=== PATIENT | male | born 1990 | race Caucasian/White ===

== ENCOUNTER → 2021-03-19 10:14 | Outpatient (BNVA) | payer OTHER, SELFPAY | PROVIDERS: Visit Provider Nurse Practitioner Family | DX: Z20.822 Contact with and (suspected) exposure to COVID-19 (principal) | CPT/HCPCS: 87635 ==

== ENCOUNTER 2025-01-24 07:20 | Emergency (ER) | payer BC, MEDICAID, SELFPAY ==
[2025-01-24 07:22] VITALS: BP 150/90; PULSE 100; RESP 18; TEMP 37.2; O2SAT 94
--- OUTSIDE RECORDS SUMMARY | 2025-01-24 07:26 | XMS_ITS | Clinical Summary ---
Author Organization [facility] Address [address] [facility] [address] [place] [address] Phone Care Team Providers Care Hand Trucker Name Role Phone Unavailable Primary Care Provider Unavailabl e Allergies Active Allergy Reactions Criticality Noted Date Comments Amoxicillin Hives High 01/24/2019 Medications clindamycin HCl (CLEOCIN) 300 mg Capsule Take 300 mg by mouth 4 times daily. Active pseudoephedrine (SUDAFED 12 HOUR) 120 mg Extended Release 12 hour tablet Take 120 mg by mouth 2 times daily as needed for Congestion. Active predniSONE (DELTASONE) 20 mg tablet 1 po tid x 5 days then 1 po bid x 3 days the 1 po daily x 2 days. Take with food.. 23 Tablet None 01/24/2019 Active Social History Tobacco Use Types Packs/Day Years Used Date Smoking Tobacco: Never Smokeless Tobacco: Current Alcohol Use Standard Drinks/Week Comments Not Currently 0 (1 standard drink = 0.6 oz pur e alcohol) Sex and Gender Information Value Date Recorded Sex Assigned at Not on file Legal Sex Male 1:37 PM CDT Gender Identity Not on file Sexual Orientation Not on file Last Filed Vital Signs Vital Sign Reading Time Taken Comments Blood Pressure 147/81 01/24/2019 1:45 PM CDT Pulse - - Temperature 36.5 C (97.7 F) 01/24/2019 1:45 PM CDT Respiratory Rate 18 01/24/2019 1:45 PM CDT Oxygen Saturation 99% 01/24/2019 1:45 PM CDT Inhaled Oxygen Concentration - - Weight 54.4 kg (120 lb) 01/24/2019 1:45 PM CDT Height 172.7 cm (5' 8 ) 01/24/2019 1:45 PM CDT Body Mass Index 18.25 01/24/2019 1:45 PM CDT Plan of Treatment Health Maintenance Due Date Last Done Comments DTAP/TDAP/TD VACCINES (1 - Tdap) 2009 HEPATITIS B VACCINES (1 of 3 - 19+ 3-dose series) 2009 INFLUENZA VACCINE (#1) 2025 HPV VACCINES Aged Out No longer eligi ble based on patient's age to complete this topic
--- OUTSIDE RECORDS SUMMARY | 2025-01-24 07:26 | XMS_ITS | Clinical Summary ---
Author Organization [facility] Address [address] [facility] Attn: Epic Prelude [place]T [place] [address] Care Team Providers Care Coping Machine Assembler Name Role Phone Unavailable Primary Care Provider Unavailabl e Allergies Active Allergy Reactions Criticality Noted Date Comments Amoxicillin Hives High 01/24/2019 Medications predniSONE (DELTASONE) 20 mg tablet 1 po tid x 5 days then 1 po bid x 3 days the 1 po daily x 2 days.Take with food.. 23 Tablet None 01/24/2019 Active clindamycin HCL (CLEOCIN) 300 mg Capsule Take 300 mg by mouth 4 times daily. 01/24/2019 Active pseudoephedrine (SUDAFED 12 HOUR) 120 mg Extended Release 12 hour tablet Take 120 mg by mouth 2 times daily as needed for Congestion. 

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
[2025-01-24 07:43] LABS: Hematocrit 48.2 % (37-53); Hemoglobin 15.80 g/dL (11.27-16.99); Mean Corpuscular HGB Conc 32.8 g/dL (30-55); Mean Corpuscular Hemoglobin 30.1 pg (27-33); Mean Corpuscular Volume 91.8 fl (82-101); Nucleated Red Blood Cells % 0 %; Platelet Count 307 10^3/cmm (157-399); Red Blood Count 5.25 10^6/uL (3.85-5.65); White Blood Count 21.52 10^3/uL (3.29-11.43)
[2025-01-24 08:00] LABS: Alanine Aminotransferase 62 U/L (0-41); Albumin Level 4.6 g/dL (3.5-5.2); Alkaline Phosphatase 145 U/L (40-130); Anion Gap 18.1 (5-19); Aspartate Amino Transferase 74 U/L (0-40); Blood Urea Nitrogen 14 mg/dL (6-20); Calcium 9.4 mg/dL (8.5-10.5); Carbon Dioxide 23 mmol/L (22-29); Chloride 104 mmol/L (98-107); Creatinine Clr Calc Pharmacy 93.7806; Globulin 3.2 g/dL (1.3-4.6); Glucose 182 mg/dL (65-115); Osmolality Calculated 297 mOsm/kg (285-295); Potassium 4.1 mmol/L (3.5-5.1); Sodium 141 mmol/L (136-145); Total Protein 7.8 g/dL (6.6-8.7)
[2025-01-24] MEDS: iohexol 350 mg/mL 500 mL Btl (per mL) IV (08:09)
[2025-01-24 08:49] VITALS: RESP 22; O2SAT 95
[2025-01-24] MEDS: morphine 4 mg/mL SDV 1 mL 2 MG IVP (08:49)
[2025-01-24] MEDS: ondansetron 2 mg/ML SDV 2 mL 4 MG IVP (08:49)
[2025-01-24] MEDS: tetanus-dipt-pertussis 0.5 mL SDV IM (08:51)
[2025-01-24 08:57] VITALS: PULSE 109; RESP 18; O2SAT 98
[2025-01-24 09:05] VITALS: BP 109/74; PULSE 102; RESP 16; O2SAT 95
[2025-01-24 09:54] VITALS: BP 136/88; PULSE 99; RESP 16; O2SAT 96
[2025-01-24 10:14] VITALS: BP 138/89; PULSE 106; RESP 16; O2SAT 94
[2025-01-24] MEDS: HYDROcodone-acetaminophen 5-325 mg Tablet 2 TAB PO (10:19)
[2025-01-24] MEDS: mupirocin oint 22 gm 1 APPLIC TOPICAL (10:20)
--- NOTE | 2025-01-24 10:40 | PC.NURSE ---
cleansed abrasions to back, right arm, and right leg with normal saline, applied ointment to wounds, covered with nonstick guaze.
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
== END 2025-01-24 10:43 | disposition home or self-care (01) ==
PROVIDERS: Emergency Provider Family Medicine
DX: S42.021A Displaced fracture of shaft of right clavicle, initial encounter for closed fracture (principal); M25.561 Pain in right knee; R07.81 Pleurodynia; V20.49XA Other motorcycle driver injured in collision with pedestrian or animal in traffic accident, initial encounter; Y92.410 Unspecified street and highway as the place of occurrence of the external cause; V29.99XA Rider (driver) (passenger) of other motorcycle injured in unspecified traffic accident, initial encounter; Z23 Encounter for immunization
CPT/HCPCS: 36415; 71045; 71260; 72125; 73030; 73130; 73562; 74177; 80053; 85025; 90471; 90715; 96374; 96375; 99285; A4565; A6446; J2270; J2405; J9999

== ENCOUNTER → 2025-01-30 08:13 | Outpatient (BNVA) | payer BC, MEDICAID, SELFPAY | PROVIDERS: Visit Provider Orthopaedic Surgery | DX: S42.021A Displaced fracture of shaft of right clavicle, initial encounter for closed fracture (principal); X58.XXXA Exposure to other specified factors, initial encounter | CPT/HCPCS: 73000 ==

== ENCOUNTER → 2025-02-13 07:48 | Outpatient (BNVA) | payer BC, MEDICAID, SELFPAY | PROVIDERS: Visit Provider Orthopaedic Surgery | DX: S42.021A Displaced fracture of shaft of right clavicle, initial encounter for closed fracture (principal); V20.49XA Other motorcycle driver injured in collision with pedestrian or animal in traffic accident, initial encounter | CPT/HCPCS: 73000 ==

== ENCOUNTER → 2025-02-20 15:39 | Outpatient (BNVA) | payer BC, MEDICAID, SELFPAY | PROVIDERS: Visit Provider Orthopaedic Surgery | DX: S42.021D Displaced fracture of shaft of right clavicle, subsequent encounter for fracture with routine healing (principal); V20.49XA Other motorcycle driver injured in collision with pedestrian or animal in traffic accident, initial encounter | CPT/HCPCS: 73000 ==

== ENCOUNTER → 2025-03-20 12:44 | Outpatient (BNVA) | payer BC, MEDICAID, SELFPAY | PROVIDERS: Visit Provider Orthopaedic Surgery | DX: S42.021D Displaced fracture of shaft of right clavicle, subsequent encounter for fracture with routine healing (principal); X58.XXXD Exposure to other specified factors, subsequent encounter | CPT/HCPCS: 73000 ==

== ENCOUNTER → 2025-04-17 13:42 | Outpatient (BNVA) | payer BC, MEDICAID, SELFPAY | PROVIDERS: Visit Provider Orthopaedic Surgery | DX: S42.021D Displaced fracture of shaft of right clavicle, subsequent encounter for fracture with routine healing (principal); X58.XXXD Exposure to other specified factors, subsequent encounter | CPT/HCPCS: 73000 ==